=== PATIENT | male | born 1985 | race African-American/Black ===

== ENCOUNTER 2017-08-24 19:31 | Emergency (ER) | payer OTHER ==
[~2017-08-24] VITALS: Ht 170.2 cm; Wt 72.4 kg
[2017-08-24 20:19] LABS: HEMOGLOBIN 11.2 G/DL (12.5-16.6); MCH 31.4 PG (29.0-34.0); MCHC 32.9 G/DL (30.0-36.0); MCV 95.2 FL (86-99); PLATELET COUNT 391 K/uL (156-360); RBC DIS.WIDTH-CV 15.1 % (11.8-14.6); RBC DIS.WIDTH-SD 53.2 % (39-53); RED BLOOD COUNT 3.57 M/uL (4.00-5.50); WHITE BLOOD COUNT 3.2 K/uL (4.1-10.2)
[2017-08-24 20:39] LABS: CHLORIDE 107 mEq/L (99-109); POTASSIUM 4.1 mEq/L (3.7-5.4); SODIUM 142 mEq/L (136-147)
[2017-08-24 20:40] LABS: GLUCOSE 80 mg/dL (70-99)
[2017-08-24 20:41] LABS: TROP-I INTERPRETATION NEGATIVE; TROPONIN-I < 0.01 ng/mL (0.0-0.30)
[2017-08-24 20:44] LABS: CREATININE 1.2 mg/dL (0.6-1.3)
[2017-08-24 20:45] LABS: UREA NITROGEN (BUN) 12 mg/dL (9-23)
[2017-08-24 20:46] LABS: GFR ESTIMATE (CALCULATED) > 59 mL/min/ (58.99-99999)
[2017-08-24 21:00] LABS: APPEARANCE CLEAR ((CLEAR)); BILIRUBIN NEGATIVE; BLOOD NEGATIVE; COLOR YELLOW ((YELLOW)); GLUCOSE (STRIP) NEGATIVE; KETONES NEGATIVE; LEUKOCYTES NEGATIVE; NITRITE NEGATIVE; PROTEIN (STRIP) NEGATIVE; SPECIFIC GRAVITY 1.017 (1.000-1.030); UCUL ADDED? NO
[2017-08-25] MEDS ORDERED: CYMBALTA30 MG PO (01:43)
[2017-08-25] MEDS ORDERED: GENVOYA TABLET1 EACH PO (01:43)
[2017-08-25 06:15] VITALS: BP 106/88
== END 2017-08-25 06:20 | disposition short-term general hospital (02) ==
LOC: EME 19:31
DX: K61.1 Rectal abscess (principal); B20 Human immunodeficiency virus [HIV] disease; R07.9 Chest pain, unspecified; R06.00 Dyspnea, unspecified; F41.9 Anxiety disorder, unspecified; F32.9 Major depressive disorder, single episode, unspecified; Z88.2 Allergy status to sulfonamides; Z88.8 Allergy status to other drugs, medicaments and biological substances
CPT/HCPCS: 71046; 74176; 80048; 81003; 84484; 85027; 93005; 99281; 99284; J2543; J3010; J7050